=== PATIENT | female | born 1945 | race Two or more races ===

== ENCOUNTER 2024-03-08 09:51 | Inpatient (IN) | payer MEDICAID ==
[~2024-03-08] VITALS: Ht 157.5 cm; Wt 87.3 kg
[2024-03-08 10:10] VITALS: PULSE 95; RESP 19; O2SAT 92
[2024-03-08] MEDS: dilTIAZem 25 MG/5 ML VIAL IV ONE ×2 (10:10)
[2024-03-08 10:28] LABS: Basophils # (auto) 0 10 ^3/uL (0-0.2); Basophils % (auto) 0.3 % (0.0-2.0); Eosinophils # (auto) 0.2 10 ^3/uL (0-0.8); Eosinophils % (auto) 1.8 % (0.0-7.0); Hematocrit 35.7 % (36.0-46.0); Lymphocytes # (auto) 1.5 10 ^3/uL (0.4-5.4); Lymphocytes % (auto) 14.9 % (10.0-50.0); Mean Corpuscular Hemoglobin 32.2 pg (28.0-32.0); Mean Corpuscular Hgb Conc. 33.5 g/dL (32.0-36.0); Mean Corpuscular Volume 96.2 fL (80.0-100.0); Monocytes # (auto) 0.5 10 ^3/uL (0-1.3); Monocytes % (auto) 5.4 % (0.0-12.0); Neutrophils # (auto) 7.8 10 ^3/uL (1.6-8.6); Neutrophils % (auto) 77.6 % (37.0-80.0); Red Blood Cells 3.71 10^6/uL (4.0-5.20); Red Cell Distribution Width 13.9 % (11.8-14.3)
[2024-03-08 10:46] LABS: Alkaline Phosphatase 116 U/L (46-116); Anion Gap 7 (5-15); Aspartate Aminotransferase 16 U/L (13-40); BUN/Creatinine Ratio 23.8 (10.0-20.0); Blood Urea Nitrogen 24 mg/dL (9-23); Calcium 9.5 mg/dL (8.7-10.4); Carbon Dioxide 20 mmol/L (20-30); Chloride 107 mmol/L (98-107); Glucose 207 mg/dL (74-106); Potassium 5.2 mmol/L (3.5-5.1); Sodium 134 mmol/L (136-145)
[2024-03-08 10:47] LABS: Albumin 4.2 g/dL (3.2-4.8); Bilirubin, Total 0.6 mg/dL (0.2-1.0); Total Protein 7.5 g/dL (5.7-8.2)
[2024-03-08 10:52] LABS: INR 1.01 (0.9-1.15); Partial Thromboplastin Time 27.6 SEC (24.5-34.5); Prothrombin Time 10.7 sec (9.3-11.8)
[2024-03-08 11:10] LABS: Alanine Aminotransferase 19 U/L (7-40)
[2024-03-08 11:42] LABS: Urine Bacteria None Seen /hpf (None Seen)
[2024-03-08] MEDS: SODIUM CHLORIDE 0.9% 1,000 ML IV ONE (11:46)
[2024-03-08] MEDS: ASPirin 81 mg TAB PO ONE (11:52)
[2024-03-08 11:58] LABS: Urine Blood Negative /uL (Negative); Urine Clarity Clear (Clear); Urine Color Colorless (Yellow); Urine Protein, UAD Negative (Negative); Urine Specific Gravity 1.012 (1.001-1.035); Urine Urobilinogen Normal (Negative); Urine WBC 2 /hpf (0 - 5)
[2024-03-08] MEDS ORDERED: dilTIAZem 25 MG/5 ML VIAL IV PRN (14:15)
[2024-03-08] MEDS: METOPROLOL TARTRATE 1MG/1ML-5ML VIAL IV ONE (14:22)
[2024-03-08] MEDS ORDERED: ONDANSETRON HCL 4 MG/2 ML VIAL IV PRN (14:30)
[2024-03-08] MEDS ORDERED: DOCUSATE SOD 100 MG CAP PO PRN (14:30)
[2024-03-08] MEDS ORDERED: ACETAMINOPHEN 325 MG TAB PO PRN (14:30)
[2024-03-08] MEDS: METOPROLOL TARTRATE 25 MG TAB PO SCH (14:59)
[2024-03-08] MEDS: InsuLIN REG 1unit/0.01ml Soln (100units/ml) SC ONE (18:00)
[2024-03-08] MEDS: ACCU-CHEK COMFORT CURVE STRIP VI ONE (18:59)
[2024-03-08 19:20] VITALS: PULSE 100; RESP 16; O2SAT 99
[2024-03-08] MEDS: DEXTROSE (50%) 50ML SYRG IV ONE (21:23)
[2024-03-08] MEDS: SODIUM CHLOR 0.9% PF (SALINE LOCK) 10ML VIAL/SYR IV SCH (22:13)
[2024-03-08 23:17] VITALS: BP 147/89; PULSE 105; RESP 20; TEMP 98.2; O2SAT 99
[2024-03-08] MEDS ORDERED: ATOR40TA52 PO (23:50)
[2024-03-08] MEDS ORDERED: ASPI-378 PO (23:50)
[2024-03-08] MEDS ORDERED: CALC-509 PO (23:50)
[2024-03-08] MEDS ORDERED: LISI20TA56 PO (23:50)
[2024-03-08] MEDS ORDERED: DAPA1TAB4 PO (23:50)
[2024-03-08] MEDS ORDERED: INSU100I28 IJ (23:52)
[2024-03-08] MEDS ORDERED: LEVEMIR SC (23:55)
[2024-03-08 23:59] VITALS: PULSE 105; RESP 20; O2SAT 99
[2024-03-09] VITALS (7 sets, daily range): BP systolic 100–122; BP diastolic 55–76; PULSE 102–110; RESP 16–20; TEMP 98–98.3; O2SAT 98–100
[2024-03-09] MEDS: ENOXAPARIN SOD 40 MG/0.4 ML SYRINGE SC SCH (08:58)
[2024-03-09 11:12] LABS: Anion Gap 5 (5-15); Carbon Dioxide 24 mmol/L (20-30); Chloride 107 mmol/L (98-107); Potassium 5.1 mmol/L (3.5-5.1); Sodium 136 mmol/L (136-145)
[2024-03-09 11:13] LABS: Calcium 9.5 mg/dL (8.7-10.4)
[2024-03-09 11:18] LABS: Blood Urea Nitrogen 20 mg/dL (9-23); Glucose 199 mg/dL (74-106); Magnesium 1.4 mg/dL (1.6-2.6)
[2024-03-09] MEDS: HYDROcodone-ACET 5/325MG TAB PO PRN (14:54)
[2024-03-10] VITALS (8 sets, daily range): BP systolic 94–112; BP diastolic 55–67; PULSE 106–116; RESP 17–20; TEMP 97.8–99.2; O2SAT 93–98
[2024-03-10] MEDS: MAGNESIUM OXIDE 400 MG TAB PO ONE (12:54)
[2024-03-10 14:15] LABS: COVID19 ANTIGEN SOFIA FIA NEGATIVE (NEGATIVE); Rapid Influenza A Negative (Negative); Rapid Influenza B Negative (Negative)
[2024-03-10] MEDS: HEPARIN SODIUM (PORCINE) 5000 UNITS/ML 1ML VIAL IV ONE (18:15)
[2024-03-10 19:15] LABS: INR 1.03 (0.9-1.15); Partial Thromboplastin Time 30.8 SEC (24.5-34.5); Prothrombin Time 10.9 sec (9.3-11.8)
[2024-03-10 19:16] LABS: Basophils # (auto) 0 10 ^3/uL (0-0.2); Basophils % (auto) 0.3 % (0.0-2.0); Eosinophils # (auto) 0.2 10 ^3/uL (0-0.8); Eosinophils % (auto) 2.7 % (0.0-7.0); Hematocrit 37.9 % (36.0-46.0); Hemoglobin 12.6 g/dL (12.2-16.2); Lymphocytes # (auto) 2.2 10 ^3/uL (0.4-5.4); Mean Corpuscular Hemoglobin 32.2 pg (28.0-32.0); Mean Corpuscular Hgb Conc. 33.4 g/dL (32.0-36.0); Mean Corpuscular Volume 96.6 fL (80.0-100.0); Monocytes # (auto) 0.7 10 ^3/uL (0-1.3); Neutrophils # (auto) 5.6 10 ^3/uL (1.6-8.6); Nucleated Red Blood Cells % 0.1 %; Red Blood Cells 3.92 10^6/uL (4.0-5.20); Red Cell Distribution Width 13.6 % (11.8-14.3); White Blood Cell 8.7 10^3/uL (4.4-10.8)
[2024-03-10] MEDS ORDERED: DEXTROSE (50%) 50ML SYRG IV PRN (20:30)
[2024-03-10] MEDS: HEPARIN DRIP/D5W 100UNITS/ML 250 ML IV SCH (20:53)
[2024-03-10] MEDS: ACCU-CHEK COMFORT CURVE STRIP VI SCH (21:54)
[2024-03-10] MEDS: InsuLIN REG 1unit/0.01ml Soln (100units/ml) SC SCH (21:54)
[2024-03-11] VITALS (8 sets, daily range): BP systolic 93–116; BP diastolic 52–67; PULSE 81–113; RESP 17–20; TEMP 97.9–98.6; O2SAT 91–94
[2024-03-11 03:10] LABS: Basophils # (auto) 0 10 ^3/uL (0-0.2); Basophils % (auto) 0.5 % (0.0-2.0); Eosinophils # (auto) 0.3 10 ^3/uL (0-0.8); Eosinophils % (auto) 3.5 % (0.0-7.0); Hematocrit 34.5 % (36.0-46.0); Hemoglobin 11.6 g/dL (12.2-16.2); Lymphocytes # (auto) 1.9 10 ^3/uL (0.4-5.4); Lymphocytes % (auto) 23.8 % (10.0-50.0); Mean Corpuscular Hemoglobin 32.1 pg (28.0-32.0); Mean Corpuscular Hgb Conc. 33.5 g/dL (32.0-36.0); Mean Corpuscular Volume 95.7 fL (80.0-100.0); Monocytes # (auto) 0.7 10 ^3/uL (0-1.3); Monocytes % (auto) 8.6 % (0.0-12.0); Neutrophils # (auto) 5.2 10 ^3/uL (1.6-8.6); Neutrophils % (auto) 63.6 % (37.0-80.0); Red Cell Distribution Width 13.8 % (11.8-14.3); White Blood Cell 8.2 10^3/uL (4.4-10.8)
[2024-03-11 03:20] LABS: Anion Gap 7 (5-15); Carbon Dioxide 25 mmol/L (20-30); Chloride 104 mmol/L (98-107); Potassium 4.8 mmol/L (3.5-5.1); Sodium 136 mmol/L (136-145)
[2024-03-11 03:21] LABS: Calcium 9.1 mg/dL (8.7-10.4)
[2024-03-11 03:26] LABS: Blood Urea Nitrogen 25 mg/dL (9-23); Glucose 182 mg/dL (74-106); Magnesium 1.7 mg/dL (1.6-2.6)
[2024-03-11 09:17] LABS: INR 1.07 (0.9-1.15); Prothrombin Time 11.3 sec (9.3-11.8)
[2024-03-11 09:44] LABS: Partial Thromboplastin Time 86.3 SEC (24.5-34.5)
[2024-03-11] MEDS: HEPARIN DRIP/D5W 100UNITS/ML 250 ML IV SCH (09:50)
[2024-03-11 17:53] LABS: INR 1.04 (0.9-1.15); Partial Thromboplastin Time 52.9 SEC (24.5-34.5)
[2024-03-11 23:42] LABS: INR 1.03 (0.9-1.15); Partial Thromboplastin Time 53.5 SEC (24.5-34.5); Prothrombin Time 10.9 sec (9.3-11.8)
[2024-03-12] VITALS (12 sets, daily range): BP systolic 107–131; BP diastolic 53–68; PULSE 102–111; RESP 17–20; TEMP 98.1–98.5; O2SAT 94–96
[2024-03-12] MEDS: LIDOCAINE 2%HCL (LOCAL ANESTH.) INJ 20ML MDV ONE (07:10)
[2024-03-12] MEDS: IODIXANOL 320MG/ML 100ML BTL IV ONE ×2 (07:10→07:35)
[2024-03-12] MEDS: HEPARIN SODIUM (PORCINE) 5000 UNITS/ML 1ML VIAL ONE (07:18)
[2024-03-12] MEDS: fentaNYL CITRATE 100 MCG/2 ML VL ONE (07:18)
[2024-03-12] MEDS: MIDAZOLAM HCL 2MG/2ML 2ml VIAL (1mg/ml) ONE (07:18)
[2024-03-12] MEDS: NITROGLYCERIN 50MG/250ML 250 ML IV ONE (07:19)
[2024-03-12] MEDS ORDERED: INSU100I67 SC (10:21)
[2024-03-12] MEDS ORDERED: INSU100I61 SC (10:21)
[2024-03-12] MEDS ORDERED: LISI10TA34 PO (10:22)
[2024-03-12] MEDS ORDERED: CLOP75TA70 PO (10:24)
[2024-03-12] MEDS ORDERED: OLOP0.2S14 EACHEYE (10:24)
[2024-03-12 12:43] LABS: INR 1.03 (0.9-1.15); Partial Thromboplastin Time 29.2 SEC (24.5-34.5); Prothrombin Time 10.9 sec (9.3-11.8)
[2024-03-13] VITALS (13 sets, daily range): BP systolic 99–144; BP diastolic 50–80; PULSE 101–148; RESP 17–22; TEMP 97.8–98.8; O2SAT 94–98
[2024-03-13 06:03] LABS: Basophils # (auto) 0 10 ^3/uL (0-0.2); Basophils % (auto) 0.3 % (0.0-2.0); Eosinophils # (auto) 0.3 10 ^3/uL (0-0.8); Eosinophils % (auto) 3.1 % (0.0-7.0); Hematocrit 34.3 % (36.0-46.0); Hemoglobin 11.5 g/dL (12.2-16.2); Lymphocytes # (auto) 1.7 10 ^3/uL (0.4-5.4); Lymphocytes % (auto) 18.1 % (10.0-50.0); Mean Corpuscular Hemoglobin 31.9 pg (28.0-32.0); Mean Corpuscular Hgb Conc. 33.4 g/dL (32.0-36.0); Mean Corpuscular Volume 95.7 fL (80.0-100.0); Monocytes # (auto) 0.7 10 ^3/uL (0-1.3); Monocytes % (auto) 7.4 % (0.0-12.0); Neutrophils # (auto) 6.6 10 ^3/uL (1.6-8.6); Neutrophils % (auto) 71.1 % (37.0-80.0); Nucleated Red Blood Cells % 0.1 %; Red Blood Cells 3.59 10^6/uL (4.0-5.20); Red Cell Distribution Width 13.4 % (11.8-14.3); White Blood Cell 9.3 10^3/uL (4.4-10.8)
[2024-03-13 06:09] LABS: Anion Gap 7 (5-15); Carbon Dioxide 25 mmol/L (20-30); Chloride 105 mmol/L (98-107); INR 1.04 (0.9-1.15); Potassium 5.1 mmol/L (3.5-5.1); Sodium 137 mmol/L (136-145)
[2024-03-13 06:10] LABS: Calcium 9.4 mg/dL (8.7-10.4)
[2024-03-13 06:14] LABS: Glucose 147 mg/dL (74-106)
[2024-03-13 06:15] LABS: BUN/Creatinine Ratio 21.3 (10.0-20.0); Blood Urea Nitrogen 19 mg/dL (9-23)
[2024-03-13] MEDS: ASPirin 81 mg TAB PO SCH (08:36)
[2024-03-13] MEDS: CLOPIDOGREL BISULFATE 75 MG TAB PO SCH (08:36)
[2024-03-13] MEDS: AMIODARONE BOLUS KIT 100 ML IV ONE (08:50)
[2024-03-13] MEDS: AMIODARONE HCL 200 MG TAB PO ONE (10:21)
[2024-03-13] MEDS: ERGOCALCIFEROL 50,000 UNIT(1.25MG) CAP PO SCH (22:00)
[2024-03-13] MEDS: AMIODARONE HCL 200 MG TAB PO SCH (22:08)
[2024-03-14] VITALS (7 sets, daily range): BP systolic 107–124; BP diastolic 54–71; PULSE 62–105; RESP 17–19; TEMP 98.4–98.8; O2SAT 94–97
[2024-03-14 06:17] LABS: Anion Gap 5 (5-15); Carbon Dioxide 26 mmol/L (20-30); Chloride 105 mmol/L (98-107); Sodium 136 mmol/L (136-145)
[2024-03-14 06:18] LABS: Calcium 9.3 mg/dL (8.7-10.4)
[2024-03-14 06:23] LABS: BUN/Creatinine Ratio 17.4 (10.0-20.0); Blood Urea Nitrogen 16 mg/dL (9-23); Glucose 168 mg/dL (74-106)
[2024-03-14 06:24] LABS: Magnesium 1.7 mg/dL (1.6-2.6)
[2024-03-14 06:33] LABS: Basophils # (auto) 0 10 ^3/uL (0-0.2); Basophils % (auto) 0.3 % (0.0-2.0); Eosinophils # (auto) 0.3 10 ^3/uL (0-0.8); Eosinophils % (auto) 4.5 % (0.0-7.0); Hematocrit 32.8 % (36.0-46.0); Hemoglobin 11.2 g/dL (12.2-16.2); Lymphocytes # (auto) 1.3 10 ^3/uL (0.4-5.4); Lymphocytes % (auto) 17.1 % (10.0-50.0); Mean Corpuscular Hemoglobin 32.5 pg (28.0-32.0); Mean Corpuscular Volume 95.5 fL (80.0-100.0); Monocytes # (auto) 0.6 10 ^3/uL (0-1.3); Monocytes % (auto) 7.9 % (0.0-12.0); Neutrophils # (auto) 5.3 10 ^3/uL (1.6-8.6); Neutrophils % (auto) 70.2 % (37.0-80.0); Nucleated Red Blood Cells % 0.1 %; Red Blood Cells 3.44 10^6/uL (4.0-5.20); Red Cell Distribution Width 13.5 % (11.8-14.3); White Blood Cell 7.6 10^3/uL (4.4-10.8)
[2024-03-14] MEDS ORDERED: MET25T PO (13:51)
[2024-03-14] MEDS ORDERED: AMIO200T13 PO (13:51)
== END 2024-03-14 16:56 | disposition home or self-care (01) | DRG 190 ==
LOC: ER 09:51 → TELE 14:18 → TELE-WESTW 23:18
PROVIDERS: ADMIT Internal Medicine; ATTEND Internal Medicine
PROC: 4A023N7 Measurement of Cardiac Sampling and Pressure, Left Heart, Percutaneous Approach (ICD-10-PCS; principal; 2024-03-12)
PROC: 04HY32Z Insertion of Monitoring Device into Lower Artery, Percutaneous Approach (ICD-10-PCS; 2024-03-12)
PROC: B211YZZ Fluoroscopy of Multiple Coronary Arteries using Other Contrast (ICD-10-PCS; 2024-03-12)
PROC: B215YZZ Fluoroscopy of Left Heart using Other Contrast (ICD-10-PCS; 2024-03-12)
PROC: B310YZZ Fluoroscopy of Thoracic Aorta using Other Contrast (ICD-10-PCS; 2024-03-12)
PROC: B218YZZ Fluoroscopy of Left Internal Mammary Bypass Graft using Other Contrast (ICD-10-PCS; 2024-03-12)
PROC: B41FYZZ Fluoroscopy of Right Lower Extremity Arteries using Other Contrast (ICD-10-PCS; 2024-03-12)
PROC: B312YZZ Fluoroscopy of Left Subclavian Artery using Other Contrast (ICD-10-PCS; 2024-03-12)
DX: I21.4 Non-ST elevation (NSTEMI) myocardial infarction (principal); I50.32 Chronic diastolic (congestive) heart failure; I11.0 Hypertensive heart disease with heart failure; E11.9 Type 2 diabetes mellitus without complications; I47.10 Supraventricular tachycardia, unspecified; E83.42 Hypomagnesemia; E87.5 Hyperkalemia; I48.0 Paroxysmal atrial fibrillation; Z20.822 Contact with and (suspected) exposure to COVID-19; I25.10 Atherosclerotic heart disease of native coronary artery without angina pectoris; Z95.2 Presence of prosthetic heart valve; Z95.1 Presence of aortocoronary bypass graft
CPT/HCPCS: 36415; 71045; 75710; 80048; 80053; 81001; 82306; 82607; 82962; 83036; 83735; 83880; 84443; 84484; 85025; 85379; 85610; 85730; 87426; 87804; 93005; 93306; 93459; 96361; 96374; 96375; 99152; G0378; J1815; J2250; Q9967